=== PATIENT | male | born 1970 | race Two or more races ===

== ENCOUNTER → 2017-10-17 | Outpatient (CLI) | payer BC | LOC: OD 16:31 | PROVIDERS: ATTEND Otolaryngology | DX: J30.9 Allergic rhinitis, unspecified (principal) | CPT/HCPCS: 36415; 82785; 86003 ==

== ENCOUNTER 2018-01-09 14:51 | Emergency (ER) | payer OTHER, BC ==
[2018-01-09] MEDS ORDERED: IBUPROFEN 600 MG TABLET PO ONE (16:03)
--- NOTE | 2018-01-09 16:07 | ER Document Report ---
ED Medical Screen (RME) - General Chief Complaint: Rash Stated Complaint: LEFT SIDE PAIN Time Seen by Provider: 01/09/18 15:16 Mode of Arrival: Ambulatory Information source: Patient Notes: Patient is a 47-year-old male who presents to the emergency department with chief complaint of rash to his left side. Patient reports this occurred approximately 17 days ago. He states he was at work when he was scratched with a brass piece of metal. Patient has already been on Bactrim for 7 days with no relief, he was then placed on clindamycin when he broke out with a rash to his arms and groin. He was then switched to Augmentin with no relief. Patient is also placing multiple creams on the area. Exam: 15 cm x 13 cm area of erythema, thick inflamed area to the left flank. I have greeted and performed a rapid initial assessment of this patient. A comprehensive ED assessment and evaluation of the patient, analysis of test results and completion of the medical decision making process will be conducted by additional ED providers. Dictation of this chart was performed using voice recognition software; therefore, there may be some unintended grammatical errors. TRAVEL OUTSIDE OF THE [place] IN LAST 30 DAYS: No - Related Data Allergies/Adverse Reactions: clindamycin Allergy (Verified 01/09/18 14:52) doxycycline [Doxycycline] Allergy (Verified 11/03/14 16:54) Past Medical History - Past Medical History Cardiac Medical History: Reports: Hx Hypercholesterolemia, Hx Hypertension Endocrine Medical History: Reports: Hx Diabetes Mellitus Type 2 Renal/ Medical History: Denies: Hx Peritoneal Dialysis Musculoskeltal Medical History: Reports Hx Arthritis Past Surgical History: Reports: Hx Orthopedic Surgery - Immunizations Hx Diphtheria, Pertussis, Tetanus Vaccination: Yes Physical Exam - Vital signs Vitals: Temp Pulse Resp BP Pulse Ox 97.9 F 89 14 148/84 H 97 01/09/18 14:55 01/09/18 14:55 01/09/18 14:55 01/09/18 14:55 01/09/18 14:55 Course - Vital Signs Vital signs: Temp Pulse Resp BP Pulse Ox 97.9 F 89 14 148/84 H 97 01/09/18 14:55 01/09/18 14:55 01/09/18 14:55 01/09/18 14:55 01/09/18 14:55 Doctor's Discharge - Discharge Referrals: NAGA DURANT, CUFF SETTER LOCKSTITCH-C [Primary Care Provider] - Follow up as needed
[2018-01-09 16:26] LABS: ABSOLUTE BASOPHILS # (AUTO) 0.1 10^3/uL (0.0-0.2); ABSOLUTE EOSINOPHILS # (AUTO) 0.7 10^3/uL (0.0-0.6); ABSOLUTE LYMPHOCYTES (AUTO) 2.3 10^3/uL (0.5-4.7); ABSOLUTE MONOCYTES (AUTO) 0.4 10^3/uL (0.1-1.4); ABSOLUTE NEUT (AUTO) 3.6 10^3/uL (1.7-8.2); BASOPHILS % (AUTO) 0.8 % (0-2); EOSINOPHILS % (AUTO) 9.9 % (0-6); HEMOGLOBIN 15.1 g/dL (13.5-17.0); LYMPHOCYTES % (AUTO) 32.6 % (13-45); MEAN CORPUSCULAR HEMOGLOBIN 34.1 pg (27.0-33.4); MEAN CORPUSCULAR VOLUME 95 fl (80-97); MONOCYTES % (AUTO) 5.4 % (3-13); PLATELET COUNT 261 10^3/uL (150-450); RED BLOOD COUNT 4.43 10^6/uL (4.35-5.55); RED CELL DISTRIBUTION WIDTH 12.7 % (11.5-14.0); SEGMENTED NEUTROPHILS % (AUTO) 51.3 % (42-78); TOTAL CELLS COUNTED % (AUTO) 100 %; WHITE BLOOD COUNT 7.1 10^3/uL (4.0-10.5)
[2018-01-09 16:40] LABS: ALBUMIN 4.8 g/dL (3.5-5.0); ANION GAP 15 (5-19); BLOOD UREA NITROGEN 15 mg/dL (7-20); CARBON DIOXIDE 24 mmol/L (22-30); CHLORIDE 100 mmol/L (98-107); GLUCOSE 93 mg/dL (75-110); SODIUM 139.1 mmol/L (137-145); TOTAL PROTEIN 7.9 g/dL (6.3-8.2)
--- NOTE | 2018-01-09 16:44 | RADIOLOGY REPORT (SQ) ---
EXAM DESCRIPTION: HIP LEFT AP/LATERAL COMPLETED DATE/TIME: 01/09/2018 4:27 pm REASON FOR STUDY: eval for FB COMPARISON: None. NUMBER OF VIEWS: Two views. TECHNIQUE: AP pelvis and additional frog-leg view of the left hip. LIMITATIONS: None. FINDINGS: MINERALIZATION: Normal. LEFT HIP: No fracture or dislocation. No worrisome bone lesions. RIGHT HIP: No fracture or dislocation. No worrisome bone lesions. PUBIS AND ISCHIUM: No fracture. PELVIS: No fracture. SACRUM: No fracture or dislocation. No worrisome bone lesions. LOWER LUMBAR SPINE: No fracture or dislocation. No worrisome bone lesions. No significant disc disea se. SOFT TISSUES: No findings. OTHER: No other significant finding. IMPRESSION: NEGATIVE STUDY OF THE LEFT HIP AND PELVIS. NO RADIOGRAPHIC EVIDENCE OF ACUTE INJURY. NO RADIOPAQUE FOREIGN BODY VISUALIZED. TECHNICAL DOCUMENTATION: JOB ID: [id number] [employer]- All Rights Reserved Reading location - IP/workstation name: [email or web address]
[2018-01-09 16:45] LABS: ALANINE AMINOTRANSFERASE 27 U/L (21-72); ALKALINE PHOSPHATASE 52 U/L (38-126); ASPARTATE AMINO TRANSFERASE 29 U/L (17-59); BILIRUBIN,DIRECT 0.1 mg/dL (0.0-0.4); BILIRUBIN,TOTAL 0.4 mg/dL (0.2-1.3); CALCIUM 9.2 mg/dL (8.4-10.2)
[2018-01-09 16:46] LABS: C-REACTIVE PROTEIN < 5.0 mg/L (<10.0)
[2018-01-09 17:03] LABS: ERYTHROCYTE SEDIMENTATION RATE 13 mm/hr (0-15)
[2018-01-09] MEDS ORDERED: VANCOMYCIN HCL INJ 1000 MG VIAL IV ONE (19:58)
[2018-01-09] MEDS ORDERED: SILVER SULFADIAZINE 1% CREAM 400 GM TP PRN (19:59)
--- NOTE | 2018-01-09 21:55 | ER Document Report ---
ED General - General Chief Complaint: Rash Stated Complaint: LEFT SIDE PAIN Time Seen by Provider: 01/09/18 15:16 Mode of Arrival: Ambulatory Information source: Patient Notes: This is a 47-year-old man who was referred to the emergency room by the numerical control drill press operator for cellulitis. 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 He states that over the next few days, the area became red and swollen. He was seen by his primary care doctor and placed on Bactrim. The rash did not respond to the Bactrim and he was placed on clindamycin. He states he developed a systemic rash from the clindamycin (i.e. allergic reaction) and stop the clindamycin. At that point he was placed then by his primary care doctor on Augmentin and he is taken that for 2 days. He states that he has been putting on steroid cream as well as neomycin ointment. He was seen by the numerical control drill press operator today who was concerned about cellulitis and referred to the ER. He denies any fever, chills, nausea vomiting. TRAVEL OUTSIDE OF THE [place] IN LAST 30 DAYS: No - HPI Onset: Other - Past 2 weeks Onset/Duration: Gradual Quality of pain: No pain Severity: None Pain Level: Denies Associated symptoms: denies: Chest pain, Fever, Shortness of breath Exacerbated by: Denies Relieved by: Denies Similar symptoms previously: No Recently seen / treated by doctor: Yes - Related Data Allergies/Adverse Reactions: clindamycin Allergy (Verified 01/09/18 14:52) doxycycline [Doxycycline] Allergy (Verified 11/03/14 16:54) Past Medical History - General Information source: Patient - Social History Smoking Status: Never Smoker Cigarette use (# per day): No Chew tobacco use (# tins/day): No Frequency of alcohol use: None Drug Abuse: None Lives with: Family Family History: Reviewed & Not Pertinent Patient has suicidal ideation: No Patient has homicidal ideation: No - Past Medical History Cardiac Medical History: Reports: Hx Hypercholesterolemia, Hx Hypertension Endocrine Medical History: Reports: Hx Diabetes Mellitus Type 2 Renal/ Medical History: Denies: Hx Peritoneal Dialysis Musculoskeletal Medical History: Reports Hx Arthritis Past Surgical History: Reports: Hx Orthopedic Surgery - Immunizations Hx Diphtheria, Pertussis, Tetanus Vaccination: Yes Review of Systems - Review of Systems Constitutional: denies: Chills, Fever EENT: No symptoms reported Cardiovascular: No symptoms reported Respiratory: No symptoms reported Gastrointestinal: No symptoms reported Genitourinary: No symptoms reported Male Genitourinary: No symptoms reported Musculoskeletal: No symptoms reported Skin: See HPI Hematologic/Lymphatic: No symptoms reported Neurological/Psychological: No symptoms reported Physical Exam - Vital signs Vitals: Temp Pulse Resp BP Pulse Ox 97.9 F 89 14 148/84 H 97 01/09/18 14:55 01/09/18 14:55 01/09/18 14:55 01/09/18 14:55 01/09/18 14:55 Notes: Physical exam: GENERAL: Is alert, ambulating around the room, no acute distress HEAD: Atraumatic, normocephalic. EYES: Pupils equal round and reactive to light, extraocular movements intact, sclera anicteric, conjunctiva are normal. ENT: TMs normal, nares patent, oropharynx clear without exudates. Moist mucous membranes. NECK: Normal range of motion, supple without obvious mass or JVD. LUNGS: Breath sounds clear to auscultation bilaterally and equal. No wheezes rales or rhonchi. HEART: Regular rate and rhythm without murmurs, rubs or gallops. ABDOMEN: Soft, normoactive bowel sounds. No tenderness to palpation. No guarding, no rebound. No masses appreciated. EXTREMITIES: Normal range of motion, no pitting or edema. No clubbing or cyanosis. NEUROLOGICAL: Cranial nerves II through XII grossly intact. Normal speech, moving all extremities. PSYCH: Normal mood, normal affect. SKIN: She does have skin reaction on the left hip. Almost looks like an old burn. With erythema above and below the area. This is over the left hip and waist (directly under the belt line). There is no fluctuance. There is no induration. There is no drainage. There is some warmth on the superior and inferior aspects of the rash. It almost looks more the reaction than a cellulitis. Course - Re-evaluation Re-evalutation: 01/09/18 21:53 Note: The patient has been on a number of antibiotics and is on day 2 of Augmentin. Given how many antibiotics is on, I do not feel it prudent to place him on a different antibiotic. I am not convinced this is a cellulitis. However, I have advised him to continue with the Augmentin to see if it responds. Additionally, I have advised him to stop using the neomycin and cortisone ointments. I will have him referred to the wound care center here. We have dressed it today with some Silvadene and a dressing. I have no suspicion for an abscess. There is no evidence of foreign body on x-ray. He is afebrile and his white count is normal. Initially his sed rate is negative. 01/09/18 21:55 - Vital Signs Vital signs: Temp Pulse Resp BP Pulse Ox 97.6 F 74 16 129/87 H 98 01/09/18 22:20 01/09/18 22:20 01/09/18 22:20 01/09/18 22:20 01/09/18 22:20 - Laboratory Result Diagrams: 01/09/18 16:05 01/09/18 16:05 Laboratory results interpreted by me: 01/09/18 16:05 MCH 34.1 H Eosinophils % 9.9 H Absolute Eosinophils 0.7 H - Diagnostic Test Radiology reviewed: Image reviewed, Reports reviewed - Hip x-ray shows no foreign body Discharge - Discharge Clinical Impression: Left hip wound Condition: Stable Disposition: HOME, SELF-CARE Additional Instructions: For now I want you to continue with the antibiotic that was prescribed to you by the primary care provider. I would like you to dress the wound with the Silvadene that we give you once daily and cover it with a dressing. I would like you to follow-up in the wound care clinic: I have given the number of the doctor that works in the wound care clinic. Return to the emergency room for fever (temperature greater than 100.4), increasing pain or concerns at the wound is getting worse. I would take off from work for the next 2 days if possible. Forms: Return to Work Referrals: NAGA DURANT FNP-C [Primary Care Provider] - Follow up in 3-5 days CHRISTINA BAHENA MD [ACTIVE STAFF] - Follow up tomorrow (This is the number for the wound care clinic: Tell them you were seen in the emergency room and the ER doctor wanted you evaluated in the wound clinic.)
[2018-01-09 22:27] VITALS: BP 129/87
== END 2018-01-09 22:23 | disposition home or self-care (01) ==
LOC: ER 14:51
DX: S71.032A Puncture wound without foreign body, left hip, initial encounter (principal); R21 Rash and other nonspecific skin eruption; X58.XXXA Exposure to other specified factors, initial encounter; E11.9 Type 2 diabetes mellitus without complications; I10 Essential (primary) hypertension
CPT/HCPCS: 99283; 36415; 85025; 85652; 86140; 80053; 73502; J3490; J3370

== ENCOUNTER 2019-06-30 11:22 | Emergency (ER) | payer BC, OTHER ==
[2019-06-30 12:18] LABS: ABSOLUTE LYMPHOCYTES (AUTO) 1.4 10^3/uL (0.5-4.7); ABSOLUTE MONOCYTES (AUTO) 0.4 10^3/uL (0.1-1.4); ABSOLUTE NEUT (AUTO) 3.4 10^3/uL (1.7-8.2); BASOPHILS % (AUTO) 0.4 % (0-2); EOSINOPHILS % (AUTO) 0.6 % (0-6); HEMATOCRIT 44.4 % (37.9-51.0); LYMPHOCYTES % (AUTO) 26.8 % (13-45); MEAN CORPUSCULAR HEMOGLOBIN 33.4 pg (27.0-33.4); MEAN CORPUSCULAR HGB CONC 35.9 g/dL (32.0-36.0); MEAN CORPUSCULAR VOLUME 93 fl (80-97); PLATELET COUNT 236 10^3/uL (150-450); RED BLOOD COUNT 4.78 10^6/uL (4.35-5.55); RED CELL DISTRIBUTION WIDTH 12.8 % (11.5-14.0); SEGMENTED NEUTROPHILS % (AUTO) 65.2 % (42-78); TOTAL CELLS COUNTED % (AUTO) 100 %; WHITE BLOOD COUNT 5.2 10^3/uL (4.0-10.5)
[2019-06-30 12:23] LABS: APPEARANCE,URINE CLEAR; BILIRUBIN,URINE NEGATIVE (NEGATIVE); COLOR,URINE STRAW; GLUCOSE, URINE NEGATIVE (NEGATIVE); KETONES,URINE NEGATIVE (NEGATIVE); LEUKOCYTE ESTERASE,URINE NEGATIVE (NEGATIVE); NITRITE,URINE NEGATIVE (NEGATIVE); PROTEIN,URINE NEGATIVE (NEGATIVE); URINE SPECIFIC GRAVITY 1.004; UROBILINOGEN,URINE NEGATIVE mg/dL (<2.0)
--- NOTE | 2019-06-30 12:25 | RADIOLOGY REPORT (SQ) ---
EXAM DESCRIPTION: CHEST SINGLE VIEW IMAGES COMPLETED DATE/TIME: 06/30/2019 12:15 pm REASON FOR STUDY: chest pain and short of breath COMPARISON: None. EXAM PARAMETERS: NUMBER OF VIEWS: One view. TECHNIQUE: Single frontal radiographic view of the chest acquired. RADIATION DOSE: NA LIMITATIONS: None. FINDINGS: LUNGS AND PLEURA: No opacities, masses or pneumothorax. No pleural effusion. MEDIASTINUM AND HILAR STRUCTURES: No masses. Contour normal. HEART AND VASCULAR STRUCTURES: Heart normal in size. Normal vasculature. BONES: No acute findings. HARDWARE: None in the chest. OTHER: No other significant finding. IMPRESSION: NO ACUTE RADIOGRAPHIC FINDING IN THE CHEST. TECHNICAL DOCUMENTATION: JOB ID: [id number] [employer]- All Rights Reserved Reading location - IP/workstation name: [email or web address]
--- NOTE | 2019-06-30 12:34 | ER Document Report ---
ED General - General Chief Complaint: Shortness Of Breath Stated Complaint: SHORTNESS OF BREATH Time Seen by Provider: 06/30/19 11:28 Primary Care Provider: NAGA DURANT FNP-C [Primary Care Provider] - Follow up as needed TRAVEL OUTSIDE OF THE [place] 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 Patient reports he had a negative treadmill test about 5 years ago. Within the last several days he is intermittently felt a pressure sensation in his left anterior chest area without radiation which is intermittently exertional. Pain is located in left anterior chest area radiating to left side of neck. Pain-free at present. During this time he is also had some headaches and myalgias. He has felt like he was possibly running a fever but when he is taken his temperature it has not been objectively elevated. Mild exertional dyspnea. He notes that a coworker was found to be COVID positive several days ago when he has concerns in particular as to whether or not his symptoms might be related to COVID infection. He denies any personal or family history of thromboembolic disease. HEART Score: HISTORY 2 ECG 0 AGE 3 RISK FACTORS 2 TROPONIN 0 TOTAL: 5 If HEART score is < or = 3 AND both tronponin measurments are normal, the 30 day risk of a major adverse cardiac event (all-cause mortality, myocardia infarction or need for coronary revscularization) is < 1% (Sensitivity 100%, NPV 100%). - Related Data Allergies/Adverse Reactions: clindamycin Allergy (Verified 01/09/18 14:52) doxycycline [Doxycycline] Allergy (Verified 11/03/14 16:54) Past Medical History - General Information source: Patient, [facility] - Social History Smoking Status: Never Smoker Frequency of alcohol use: Occasional Family History: CAD Patient has suicidal ideation: No Patient has homicidal ideation: No - Past Medical History Cardiac Medical History: Reports: Hx Hypercholesterolemia, Hx Hypertension Endocrine Medical History: Reports: Hx Diabetes Mellitus Type 2 Renal/ Medical History: Denies: Hx Peritoneal Dialysis GI Medical History: Reports: Hx Gastroesophageal Reflux Disease Musculoskeletal Medical History: Reports Hx Arthritis Past Surgical History: Reports: Hx Orthopedic Surgery - Immunizations Hx Diphtheria, Pertussis, Tetanus Vaccination: Yes Review of Systems - Review of Systems Notes: Constitutional: As per HPI. HENT: Negative for sore throat. Denies changes in sense of smell or taste. Eyes: Negative for visual changes. Cardiovascular: As per HPI. Respiratory: Negative for shortness of breath. Gastrointestinal: Negative for abdominal pain, vomiting or diarrhea. Genitourinary: Negative for dysuria. Musculoskeletal: Myalgias. Skin: Negative for rash. Neurological: Dull headache.. 10 point ROS negative except as marked above and in HPI. Physical Exam - Vital signs Vitals: Resp Pulse Ox 17 97 06/30/19 11:26 06/30/19 11:26 - Notes Notes: Remote Exam Using Telemedicine System GENERAL: Well-developed well-nourished appearing in no acute distress. SKIN: no rashes. HEAD: Normocephalic atraumatic. EYES: PERRL. EOMI. Conjunctivae and sclerae clear. NOSE: CLEAR. MOUTH: Moist mucosa. Good dentition. No stridor or edema. No drooling. NECK: Full ROM. No visible masses or thyromegaly. No JVD. BACK: Symmetrical. CHEST: Respirations unlabored. Expands symmetrical. ABDOMEN: Non-distended. GENITALIA: Deferred. EXTREMITIES: No edema. NEUROLOGICAL: GCS 15. Alert and oriented x3. Normal gait. Fluent speech. Cranial nerves II through XII intact. Motor and cerebellar normal. PSYCHIATRIC: Appropriate affect. Course - Re-evaluation Re-evalutation: 06/30/19 13:37 Flu test and strep test are negative. Patient's EKG is of normal appearance. His first troponin is negative. He remains free of pain. Chest x-ray shows no infiltrates his oxygenation is normal. Findings have been discussed with Dr. Lisa Espinosa from cardiology. He recommends that we get a second troponin at least 3 hours after the first. If this is still negative he would be comfortable working this gentleman up as an outpatient. We are sending a COVID swab and we should have results on this within 72 hours. Provided this is negative he can see the patient in the office on June at 10:30 AM for treadmill testing. I will sign this patient over to Dr. Dami Brittney for follow-up and final disposition. 06/30/19 13:41 06/30/19 13:45 - Vital Signs Vital signs: Temp Pulse Resp BP Pulse Ox 98.7 F 78 20 158/99 H 99 06/30/19 11:27 06/30/19 11:27 06/30/19 14:01 06/30/19 14:01 06/30/19 14:01 - Laboratory Result Diagrams: 06/30/19 11:50 06/30/19 11:50 Laboratory results interpreted by me: 06/30/19 11:50 Sodium 133.4 L Chloride 96 L Glucose 154 H Total Protein 8.3 H - Diagnostic Test Radiology reviewed: Reports reviewed - Portable chest x-ray shows no active disease per radiologist. - EKG Interpretation by Me Additional EKG results interpreted by me: 06/30/19 12:38 Twelve-lead EKG from 1134 hrs. reviewed contemporaneously by me demonstrating n ormal sinus rhythm with a rate of 77 and a QRS axis of +15 degrees. He has no acute ST/T wave changes and intervals are normal. Discharge - Discharge Clinical Impression: Exposure to COVID-19 virus Chest pain Qualifiers: Chest pain type: unspecified Qualified Code(s): R07.9 - Chest pain, unspecified Condition: Stable Disposition: HOME, SELF-CARE Additional Instructions: You will need to self isolate at home until you receive the results of your COVID-19 test which should come back within the next 72 hours. You will receive a call from the hospital reporting these results. Provided your COVID-19 test is negative you will need to see Dr. Lisa Espinosa (cardiology) for an office follow-up visit with treadmill testing next week. Dr. Espinosa has reserved an appointment time for you in his office at 10:30 AM on Tuesday, 03 July. Contact information for Dr. Espinosa has been provided along with his discharge instructions. Return here as needed for new or worsening symptoms: Pain that is worsening or unimproved Uncontrolled vomiting High fever or shaking chills Overall worsening Referrals: NAGA DURANT, TAPE SEWER-C [Primary Care Provider] - Follow up as needed LISA ESPINOSA MD [ACTIVE PROVISIONAL STAFF] - Follow up as needed
[2019-06-30 12:37] LABS: A TYPE INFLUENZA AG NEGATIVE (NEGATIVE); B INFLUENZA AG NEGATIVE (NEGATIVE)
[2019-06-30 12:43] LABS: ALKALINE PHOSPHATASE 56 U/L (38-126); ANION GAP 9 (5-19); ASPARTATE AMINO TRANSFERASE 33 U/L (17-59); BILIRUBIN,TOTAL 0.8 mg/dL (0.2-1.3); BLOOD UREA NITROGEN 16 mg/dL (7-20); CALCIUM 9.6 mg/dL (8.4-10.2); CARBON DIOXIDE 28 mmol/L (22-30); CHLORIDE 96 mmol/L (98-107); GLUCOSE 154 mg/dL (75-110); POTASSIUM 4.4 mmol/L (3.6-5.0); TOTAL PROTEIN 8.3 g/dL (6.3-8.2)
[2019-06-30 16:14] VITALS: BP 138/68
--- NOTE | 2019-07-01 10:20 | EKG REPORT ---
SEVERITY:- BORDERLINE ECG - SINUS RHYTHM PROBABLE LEFT ATRIAL ABNORMALITY : Confirmed by: Tessy Bowles 01-Jul-2019 10:20:00
== END 2019-06-30 16:13 | disposition home or self-care (01) ==
LOC: ER 11:22
DX: Z20.828 Contact with and (suspected) exposure to other viral communicable diseases (principal); R07.9 Chest pain, unspecified; R06.02 Shortness of breath; I10 Essential (primary) hypertension; E78.5 Hyperlipidemia, unspecified; E11.9 Type 2 diabetes mellitus without complications; Z88.1 Allergy status to other antibiotic agents
CPT/HCPCS: 36415; 71045; 80053; 81001; 84484; 85025; 87070; 87635; 87804; 87880; 93005; 93010; 99284

== ENCOUNTER → 2019-07-18 | Outpatient (CLI) | payer BC ==
--- NOTE | 2019-07-18 13:19 | DRAGON STRESS TEST REPORT ---
The patient underwent a stress/rest, single isotope SPECT Imaging with exercise stress and gated SPECT imaging for evaluation of chest pain. The patient underwent treadmill exercise using the Adelso protocol, completing 8:01 minutes and completing an estimated workload of 10.1 metabolic equivalents (METS). The test was terminated due to chest pain. The heart rate was86 beats per minute at baseline and increased to 157 beats at peak exercise, which was 90% of the maximum predicted heart rate. The rest blood pressure was 139/79 mm/Hg and decreased to 193/72 mm/Hg, which is a normal response. The patient complained of chest pressure during the procedure. The resting electrocardiogram demonstrated NSR. There was 1-2 mm upsloping depression in the inferolateral leads. Myocardial perfusion imaging was performed at rest following the injection of 12.65 mCi of sestamibi. At peak exercise, the patient was injected with 38.6 mCi of sestamibi and exercise was continued for minute(s). Gating post-stress tomographic imaging was performed 60 minutes after stress. Findings The overall quality of the study is excellent. Raw images demonstrate no significant artifacts. Left ventricular cavity is noted to be lucia on the rest and stress studies. Resting SPECT images demonstrate homogeneous tracer distribution throughout the myocardium. The stress images reveal homogeneous tracer distribution throughout the myocardium. Gated SPECT imaging reveals normal myocardial thickening and wall motion. The left ventricular ejection fraction was calculated to be 58% Impression -Myocardial perfusion imaging is normal. -There is no scintigraphic evidence of ischemia or infarct. -Overall left ventricular systolic function was normal without wall motion. -There are no prior studies for comparison. [facility]
== END ==
LOC: RAD 07:17
PROVIDERS: ATTEND Internal Medicine Cardiovascular Disease
DX: R07.89 Other chest pain (principal); I10 Essential (primary) hypertension
CPT/HCPCS: 93017; 78452; A9500; Q9969